=== PATIENT | female | born 1985 | race Caucasian/White ===

== ENCOUNTER 2022-12-29 18:26 | Outpatient (CLI) | payer OTHER, SELFPAY | END 2022-12-29 18:27 | disposition home or self-care (01) | LOC: NFLDREF 18:27 | PROVIDERS: PCP Family Medicine; Visit Provider Registered Nurse | DX: Z01.419 Encounter for gynecological examination (general) (routine) without abnormal findings (principal); Z13.6 Encounter for screening for cardiovascular disorders | CPT/HCPCS: 80061 ==

== ENCOUNTER 2023-06-15 13:52 | Emergency (ER) | payer OTHER, SELFPAY ==
[2023-06-15 13:57] VITALS: BP 120/80; PULSE 115; RESP 18; TEMP 37; O2SAT 98; BMI 28.2
--- NOTE | 2023-06-15 14:09 | ED_ITS ---
HPI - Nausea/Vomiting/Diarrhea General Time Seen by Provider: 14:10 Date Seen: 06/15/23 Chief complaint: Nausea/Vomiting Stated complaint: vomiting, abdominal pain Time Seen by Provider: 06/15/23 13:55 Source: patient and RN notes reviewed Mode of arrival: ambulatory Limitations: no limitations History of Present Illness HPI Narrative: This 37-year-old female is coming in with nausea vomiting and diarrhea, nonbloody. She states she has not been able to keep any fluids down. She is feeling some mild general abdominal cramping. She has had diverticulitis before but states this is nothing like that, there is no localized pain. No fevers. She has had some cramping in her legs as well. She is wondering if she needs some IV fluids EM on the anti nausea medicine. She has no Zofran at home. Her kids have been sick as well. She herself has had no travel. She describes the abdominal cramping is generalized, mild, really no focal tenderness in her abdomen. MD elicited complaint: nausea, vomiting and diarrhea Related Data Home Medications Medication Instructions Recorded Confirmed digestive enzymes 1 tab PO QDAY 12/29/22 06/15/23 multivitamin 1 tab PO QAM 12/29/22 06/15/23 Previous Rx's Medication Instructions Recorded ondansetron 4 mg disintegrating 4 mg PO Q6H PRN nausea and 06/15/23 tablet vomiting #20 tabs Allergies Allergy/AdvReac Type Severity Reaction Status Date / Time clindamycin Allergy Mild Vomiting Verified 06/15/23 14:01 erythromycin base Allergy Mild Rash Verified 06/15/23 14:01 Sulfa (Sulfonamide Allergy Mild Rash Verified 06/15/23 14:01 Antibiotics) Review of Systems Status of ROS: Reports: 6 or more systems reviewed and unremarkable except as noted in History and below [facility] Medical History History of dyspareunia in female ?Z87.42 - Personal history of other diseases of the female genital tract (ICD-10) History of diet controlled gestational diabetes mellitus (GDM) (2016) ?Z86.32 - Personal history of gestational diabetes (ICD-10) Acute diverticulitis of intestine ?K57.92 - Diverticulitis of intestine, part unspecified, without perforation or abscess without bleeding (ICD-10) Surgical History History of colonoscopy ?Z98.890 - Other specified postprocedural states (ICD-10) History of 2 sections ?Z98.891 - History of uterine scar from previous surgery (ICD-10) Status post tonsillectomy and adenoidectomy ?Z90.89 - Acquired absence of other organs (ICD-10) Family History Mother Thyroid disease High blood pressure Depression Social History What is your current living situation?: I presently have a place to live Problems where you live: no known problems In the past 12 months, utilities in danger of being shut off: no In past 12 months, lack of transportation kept you from medical appts, meetings, work, or getting things needed for daily living: no In the past 12 mos, have been you worried that your food would run out before you had money to buy more?: never true In the past 12 mos, the food you bought just didn't last and you didn't have money to buy more?: never true Smoking Status: Never smoker How often do you have a drink containing alcohol: never AUDIT-C Alcohol total score: 0 Non-prescribed substance use: denies use How often does anyone, including family, friends and others, physically hurt you : never How often does anyone, including family, friends and others, insult or talk down to you: never How often does anyone, including family, friends and others, threaten you with harm: never How often does anyone, including family, friends and others, scream or curse at you: never Little interest or pleasure in doing things: not at all Feeling down, depressed, or hopeless: not at all service: No Exam Const: Vital Signs, click to edit/add: Vital Signs - 24 hr 06/15/23 13:57 Temperature 98.6 F Pulse Rate [Pulse Oximeter] 115 H Respiratory Rate 18 Blood Pressure [Ri ght Upper Arm] 120/80 Pulse Oximetry 98 Oxygen Delivery Me thod Room Air This patient is alert, interactive, no apparent distress, very pleasant. Sclera clear, conjugate gaze. Oropharynx no mucosa no exudates or erythema noted. Neck supple. Lungs clear, good air entry, wheeze our coccal so. CV slightly fast but regular, no murmur, normal S1-S2, no S3-S4. Abdomen is soft, nontender, nondistended, bowel sounds are present and sound normal. She has no organomegaly or masses noted. Patient was ambulatory into the ED of her own accord. Documenting provider has reviewed patient's vital signs: yes Course Course ED Course: We will stab lotion IV, give this patient a L of lactated Ringer's and 4 mg IV Zofran. We will get some basic labs on her. She certainly will likely need Zofran on discharge. We have discussed that this very well represents an acute viral gastroenteritis. Her abdominal exam is benign. Do not feel she requires any imaging at this time. Reevaluation(s) Time of Reevaluation #1: 15:51 Reevaluation #1: Patient's bicarb level is mildly low at 18. Will give her a 2 L of lactated Ringer's prior to discharge. Updated patient on this, reviewed normal white blood count. She states she is feeling better. She feels the cramping in her belly at times is going away now. Nausea is improved. Will plan for discharge after she has completed her 2 L of fluids. Vital Signs Vital signs: Initial Vital Signs Temperature 98.6 F 06/15/23 13:57 Temperature Source Temporal Artery Scan 06/15/23 13:57 Pulse Rate 115 H 06/15/23 13:57 Respiratory Rate 18 06/15/23 13:57 Blood Pressure 120/80 06/15/23 13:57 Blood Pressure Mean 93 06/15/23 13:57 Blood Pressure Position Sitting 06/15/23 13:57 Pulse Oximetry 98 06/15/23 13:57 Oxygen Delivery Method Room Air 06/15/23 13:57 Vital Signs Temperature 98.6 F 06/15/23 13:57 Pulse Rate 115 H 06/15/23 13:57 Respiratory Rate 18 06/15/23 13:57 Blood Pressure 120/80 06/15/23 13:57 Pulse Oximetry 98 06/15/23 13:57 Oxygen Delivery Method Room Air 06/15/23 13:57 Temperature 98.6 F 06/15/23 13:57 Pulse Rate 115 H 06/15/23 13:57 Respiratory Rate 18 06/15/23 13:57 Blood Pressure 120/80 06/15/23 13:57 Pulse Oximetry 98 06/15/23 13:57 Oxygen Delivery Method Room Air 06/15/23 13:57 Medications Administered Medications: Generic Name Dose Route Start Last Admin Trade Name Freq PRN Reason Stop Dose Admin Lactated Ringer's 1,000 mls @ 1,000 mls/hr 06/15/23 15:49 06/15/23 15:57 Lactated Ringers 1000 Ml IV 06/15/23 16:48 1,000 mls/hr .Q1H ONE Administration Discontinued Medications Generic Name Dose Route Start Last Admin Trade Name Freq PRN Reason Stop Dose Admin Lactated Ringer's 1,000 mls @ 1,000 mls/hr 06/15/23 14:15 06/15/23 15:40 Lactated Ringers 1000 Ml IV 06/15/23 15:14 Infused .Q1H ONE Infusion Ondansetron HCl 4 mg 06/15/23 14:15 06/15/23 14:22 Ondansetron 2 Mg/Ml Inj IVP 06/15/23 14:16 4 mg ONCE ONE Administration MDM - Nausea/Vomiting/Diarrhea Lab Data Attestation: I reviewed the patient's lab results. Labs: Lab Results 06/15/23 Range/Units 14:24 WBC 7.29 (4.50-11.00) K/uL RBC 5.52 H (4.00-5.20) m/uL Hgb 16.2 H (12.0-16.0) gm/dL Hct 46.5 (33.0-51.0) % MCV 84 (80-100) fL MCH 29 (26-34) pg MCHC 35 (32-36) gm/dL RDW Coeff of Wenceslao 11.8 (11.5-15.5) % Plt Count 259 (140-440) K/uL Neut % (Auto) 88.1 H (42.0-72.0) % Lymph % (Auto) 6.3 L (20-44) % Dodge % (Auto) 4.8 (0.0-11.0) % Eos % (Auto) 0.0 (0.0-7.0) % Baso % (Auto) 0.0 (0.0-3.0) % Neut # (Auto) 6.40 (1.7-7.0) K/uL Lymph # (Auto) 0.50 L (0.90-2.90) K/uL Dodge # (Auto) 0.30 (0.00-0.90) K/UL Eos # (Auto) 0.00 (0.00-0.50) K/uL Baso # (Auto) 0.00 (0.00-0.30) K/uL Abs Immat Gran (auto) 0.06 (0.00-0.30) K/uL Imm/Tot Granulo (auto) 0.8 % Sodium 136 (135-149) mmol/L Potassium 4.2 (3.6-5.1) mmol/L Chloride 107 (96-114) mmol/L Carbon Dioxide 18 L (20-32) mmol/L Anion Gap 11 (7-15) mEq/L BUN 22 (5-24) mg/dL Creatinine 0.7 (0.5-1.5) mg/dL Estimated Creat Clear 102.01 Estimated GFR 113 ml/min Glucose 143 H (60-115) mg/dL Lactate 1.7 (0.5-1.9) mmol/L Calcium 9.5 (8.4-10.6) mg/dL Discharge Plan Discharge Clinical Impression: Gastroenteritis Patient Disposition: Home, Self-Care Condition: Stable Instructions: Gastroenteritis (ED), Nutrition Tips for Relief of Diarrhea (ED) Additional Instructions: Use Zofran as needed for any further nausea or vomiting, follow prescription instructions. Small frequent sips of fluids to help keep you hydrated, this strategy helps to not overload the stomach. Can increase your diet back to regular as you feel better. Have provided a handout for foods with underlying diarrhea, can follow this until the diarrhea settles down. The diarrhea may linger longer than the nausea and vomiting. If the nausea and vomiting are not improving in the next 24-48 hours, do recommend re-evaluation. Should you develop severe abdominal pain, if the abdominal pain is associated with fever, increased vomiting or you develop blood in the vomit or diarrhea, do recommend r e-evaluation. Activity Level: Activity as Tolerated Prescriptions: New ondansetron 4 mg tablet,disintegrating 4 mg PO Q6H PRN (Reason: nausea and vomiting) Qty: 20 0RF No Action multivitamin Tablet 1 tab PO QAM digestive enzymes Tablet 1 tab PO QDAY Follow Up/Referrals: Franky Sanchez MD [Primary Care Provider] - Stand Alone Forms: MyHealth Info Instructions
[2023-06-15] MEDS: LACTATED RINGERS 1000 ML 1,000 ML IV ×2 (14:22→15:57)
[2023-06-15] MEDS: ONDANSETRON 2 MG/ML inj 4 MG IVP (14:22)
[2023-06-15 14:40] LABS: Lactate* 1.7 mmol/L (0.5-1.9)
[2023-06-15 14:43] LABS: Hematocrit 46.5 % (33.0-51.0); Hemoglobin* 16.2 gm/dL (12.0-16.0); Immature Granulocytes Abs Auto 0.06 K/uL (0.00-0.30); Immature Granulocytes Pct Auto 0.8 %; Lymphocytes Percent Auto 6.3 % (20-44); Mean Corpuscular HGB Conc 35 gm/dL (32-36); Mean Corpuscular Hemoglobin 29 pg (26-34); Mean Corpuscular Volume 84 fL (80-100); Monocytes Percent Auto 4.8 % (0.0-11.0); Neutrophils Percent Auto 88.1 % (42.0-72.0); Platelet Count* 259 K/uL (140-440); RDW Coefficient of Variation % 11.8 % (11.5-15.5); Red Blood Count 5.52 m/uL (4.00-5.20); White Blood Count* 7.29 K/uL (4.50-11.00)
[2023-06-15 14:44] LABS: Slide Review Reflex No
[2023-06-15 15:37] LABS: Chloride* 107 mmol/L (96-114); Potassium* 4.2 mmol/L (3.6-5.1); Sodium* 136 mmol/L (135-149)
[2023-06-15 15:39] LABS: Creatinine* 0.7 mg/dL (0.5-1.5); Est. Creatinine Clearance* 102.01; Estimated Glomerular Filt Rate 113 ml/min
[2023-06-15 15:40] LABS: Anion Gap 11 mEq/L (7-15); Blood Urea Nitrogen* 22 mg/dL (5-24); Calcium* 9.5 mg/dL (8.4-10.6); Carbon Dioxide* 18 mmol/L (20-32); Glucose* 143 mg/dL (60-115)
== END 2023-06-15 17:01 | disposition home or self-care (01) ==
PROVIDERS: Emergency Provider Family Medicine; PCP Family Medicine
DX: K52.9 Noninfective gastroenteritis and colitis, unspecified (principal)
CPT/HCPCS: 36415; 80048; 83605; 85025; 96374; 99283; 99284; J2405; J7120

== ENCOUNTER 2024-02-07 08:42 | Outpatient (CLI) | payer OTHER, SELFPAY | END 2024-02-07 08:43 | disposition home or self-care (01) | LOC: NFLDREF 02-10 14:28 | PROVIDERS: PCP Family Medicine; Referring Provider Family Medicine; Visit Provider Registered Nurse | DX: Z13.6 Encounter for screening for cardiovascular disorders (principal) | CPT/HCPCS: 80061 ==

== ENCOUNTER 2024-11-21 09:00 | Outpatient (CLI) | payer OTHER, SELFPAY ==
--- NOTE | 2024-11-21 09:15 | CRLHL7_ITS ---
For Patients: As a result of the Century Cures Act, medical imaging exams and procedure reports are released immediately into your electronic medical record. You may view this report before your referring provider. If you have questions, please contact your health care provider. BILATERAL DIGITAL SCREENING MAMMOGRAM WITH COMPUTER-AIDED DETECTION AND TOMOSYNTHESIS CLINICAL HISTORY: Routine screening exam. COMPARISON: None TECHNIQUE: Digital mammogram in CC and MLO projections including computer-aided detection (CAD). Tomosynthesis was used in this interpretation. BREAST COMPOSITION: The breasts are heterogeneously dense, which may obscure small masses. FINDINGS: RIGHT Breast: Focal nodular density within the upper inner quadrant 2 cm from the nipple, probable cyst. LEFT Breast: No suspicious findings. IMPRESSION: RIGHT breast asymmetry/mass. RECOMMENDATIONS: Right breast ultrasound recommended. The [facility] will contact the patient. A lay language report of this examination will be provided to the patient. BI-RADS Category 0: Incomplete: Need Additional Imaging Evaluation Dictated by Kevin Lock MD @ 11/21/2024 10:09:41 AM (Electronically Signed)
== END 2024-11-21 09:01 | disposition home or self-care (01) ==
LOC: MAMMO 09:00
PROVIDERS: PCP Family Medicine; Visit Provider Family Medicine
DX: Z12.31 Encounter for screening mammogram for malignant neoplasm of breast (principal); N63.10 Unspecified lump in the right breast, unspecified quadrant; R92.333 Mammographic heterogeneous density, bilateral breasts
CPT/HCPCS: 77063; 77067

== ENCOUNTER 2024-12-01 10:54 | Outpatient (CLI) | payer OTHER, SELFPAY ==
--- NOTE | 2024-12-01 11:15 | CRLHL7_ITS ---
For Patients: As a result of the Century Cures Act, medical imaging exams and procedure reports are released immediately into your electronic medical record. You may view this report before your referring provider. If you have questions, please contact your health care provider. RIGHT BREAST ULTRASOUND CLINICAL HISTORY: RIGHT breast mass. TECHNIQUE: Real-time ultrasound imaging of RIGHT breast with imaging documentation. FINDINGS: Targeted RIGHT breast ultrasound performed. At 1 o`clock 2 cm from the nipple, there is a simple circumscribed anechoic cyst which measures 1.8 x 1.3 x 1.7 cm. An additional cyst is present at 1 o`clock 3 cm from the nipple measuring 1.9 x 1.2 x 1.5 cm. There is a third simple cyst at 12 o`clock 2 cm from the nipple measuring 1.6 x 1.1 x 1.2 cm. A fourth cyst is present at 12 o`clock 3 cm from the nipple measuring 7 x 10 x 5 millimeters. IMPRESSION: Multiple benign simple cysts. No suspicious findings. No evidence of malignancy. RECOMMENDATIONS: Routine screening mammography. Results and recommendations were discussed with the patient at the time of the exam. A lay language report of this examination will be provided to the patient. BI-RADS Category 2: Benign Dictated by Kevin Lock MD @ 12/01/2024 11:54:52 AM jj/Dictated by: Kevin Lock MD @ 12/01/2024 11:54:00 AM (Electronically Signed)
== END 2024-12-01 10:55 | disposition home or self-care (01) ==
LOC: US 10:55
PROVIDERS: PCP Family Medicine; Visit Provider Family Medicine
DX: N63.10 Unspecified lump in the right breast, unspecified quadrant (principal); N60.01 Solitary cyst of right breast; R92.8 Other abnormal and inconclusive findings on diagnostic imaging of breast
CPT/HCPCS: 76642